=== PATIENT | female | born 1980 | race Caucasian/White ===

== ENCOUNTER 2021-02-15 13:17 | Emergency (ER) | payer MEDICAID, OTHER ==
[~2021-02-15] VITALS: Ht 167.6 cm; Wt 55.3 kg
[2021-02-15] MEDS ORDERED: IV NORMAL SALINE 1000 ML BAG IV ONE (13:30)
[2021-02-15] MEDS ORDERED: DEXAMETHASONE SOD PHOSPHATE 4 MG INJ IV ONE (13:30)
[2021-02-15] MEDS ORDERED: ACETAMINOPHEN 325 MG TABLET PO ONE (13:30)
[2021-02-15] MEDS ORDERED: METOCLOPRAMIDE HCL 10 MG/2 ML VIAL IV ONE (13:30)
[2021-02-15] MEDS ORDERED: diphenhydrAMINE 50 MG/1 ML VIAL IV ONE (13:30)
[2021-02-15] MEDS ORDERED: KETOROLAC TROMETHAMINE 15 MG INJ IVP ONE (13:30)
[2021-02-15 13:57] LABS: HEMATOCRIT 42.9 % (31.2-41.9); MEAN CORPUSCULAR HEMOGLOBIN 32.7 uug (24.7-32.8); MEAN CORPUSCULAR VOLUME 95.3 fL (75.5-95.3); PLATELET COUNT (AUTO) 213 K/uL (179-408)
[2021-02-15 13:58] LABS: *AMPHETAMINE, URINE NEGATIVE (NEGATIVE); *CANNABINOID, URINE NEGATIVE (NEGATIVE); *COCCAINE, URINE NEGATIVE (NEGATIVE); *OPIATE, URINE NEGATIVE (NEGATIVE); *PHENCYCLIDINE SCREEN,URINE NEGATIVE (NEGATIVE)
[2021-02-15 14:03] LABS: CREATININE 0.7 mg/dL (0.6-1.3); POTASSIUM 3.8 mmol/L (3.5-5.1)
[2021-02-15 14:43] LABS: *URINE HCG, QUAL NEGATIVE (NEGATIVE)
[2021-02-15] MEDS ORDERED: METOCLOPRAMIDE HCL 10 MG/2 ML VIAL ONE (14:50)
[2021-02-15] MEDS ORDERED: ACETAMINOPHEN 325 MG TABLET ONE (14:50)
[2021-02-15] MEDS ORDERED: diphenhydrAMINE 50 MG/1 ML VIAL ONE (14:50)
[2021-02-15] MEDS ORDERED: DEXAMETHASONE SOD PHOSPHATE 4 MG INJ ONE (15:06)
[2021-02-15] MEDS ORDERED: KETOROLAC TROMETHAMINE 15 MG INJ ONE (15:07)
[2021-02-15] MEDS ORDERED: SUMA50TA PO (15:35)
[2021-02-15] MEDS ORDERED: IBUP-1955 PO (15:36)
[2021-02-15] MEDS ORDERED: METO-295 PO (15:36)
--- NOTE | 2021-02-15 15:45 | NUR ---
IV removed. Catheter intact and site benign. Pressure and 4x4 gauze applied to site. No bleeding noted.
--- NOTE | 2021-02-15 15:46 | NUR ---
Patient discharged to home in stable condition. Written and verbal after care instructions given. Patient verbalizes understanding of instructions. Stressed follow up or return to ER for worsening s/s.
== END 2021-02-15 15:47 | disposition home or self-care (01) ==
LOC: ER 13:17
DX: G43.909 Migraine, unspecified, not intractable, without status migrainosus (principal)
CPT/HCPCS: 36415; 80048; 80307; 84703; 85025; 96361; 96374; 96375; 99284; J1100; J1200; J1885; J2765; A4663; J7030